=== PATIENT | male | born 1995 | race Caucasian/White ===

== ENCOUNTER 2021-02-03 12:28 | Emergency (ER) | payer OTHER ==
[~2021-02-03] VITALS: Ht 180.3 cm; Wt 59.1 kg
[2021-02-03] MEDS ORDERED: FLUT16SP2 BOTHNARES (12:46)
[2021-02-03] MEDS ORDERED: AMOX-422 PO (12:46)
[2021-02-03] MEDS ORDERED: METH4TAB3 PO (12:46)
[2021-02-03 13:06] VITALS: BP 127/76
== END 2021-02-03 13:20 | disposition home or self-care (01) ==
LOC: ER 12:28
DX: J01.00 Acute maxillary sinusitis, unspecified (principal); B96.89 Other specified bacterial agents as the cause of diseases classified elsewhere; Z88.1 Allergy status to other antibiotic agents; Z79.2 Long term (current) use of antibiotics; Z72.89 Other problems related to lifestyle
CPT/HCPCS: 36415; 99283